=== PATIENT | female | born 1985 | race Caucasian/White ===

== ENCOUNTER 2023-08-12 02:33 | Day surgery (SDC) | payer BC ==
[2023-08-12] MEDS: Morphine 4 MG/ML Syringe IVPUSH ONE ×2 (03:18→06:09)
[2023-08-12] MEDS: Ondansetron 4 MG/2 ML SDV IVPUSH ONE (03:18)
[2023-08-12] MEDS: Sodium Chloride 0.9% 1,000 ML IV ONE (03:41)
[2023-08-12 03:43] LABS: BASOPHILS PERCENT AUTO 0.2 % (0.0-1.0); EOSINOPHILS ABSOLUTE AUTO 0.1 K/mm3 (0.0-0.4); EOSINOPHILS PERCENT AUTO 0.3 % (0.0-6.0); HEMATOCRIT 38.5 % (37.0-47.0); HEMOGLOBIN 12.8 gm/dl (12.0-16.0); IMMATURE GRAN ABSOLUTE AUTO 0.09 K/mm3 (0.00-0.05); IMMATURE GRAN PERCENT AUTO 0.4 % (0.0-0.4); LYMPHOCYTES ABSOLUTE AUTO 1.5 K/mm3 (1.0-4.8); LYMPHOCYTES PERCENT AUTO 7.4 % (24.0-44.0); MEAN CORPUSCULAR HEMOGLOBIN 27.6 pg (28.0-32.0); MEAN CORPUSCULAR HGB CONC 33.2 g/dl (32.0-36.0); MEAN CORPUSCULAR VOLUME 83.2 fl (83.0-99.0); MEAN PLATELET VOLUME 9.8 fl (9.4-12.3); MONOCYTES ABSOLUTE AUTO 1.2 K/mm3 (0.0-0.8); MONOCYTES PERCENT AUTO 5.6 % (0.0-8.0); NEUTROPHILS PERCENT AUTO 86.1 % (41.0-71.0); PLATELET COUNT,PLT 372 K/mm3 (150-400); RED BLOOD CELL COUNT 4.63 M/mm3 (4.10-5.30)
[2023-08-12 04:06] LABS: PROTHROMBIN TIME 9.9 SECONDS (9.7-12.0)
[2023-08-12 04:07] LABS: PTT,PARTIAL THROMBOPLSTIN TIME 25.6 SECONDS (21.7-31.4)
[2023-08-12 04:09] LABS: ALBUMIN 3.8 g/dl (3.4-5.0); ANION GAP 15.7 (5-15); BILIRUBIN TOTAL 0.4 mg/dL (0.2-1.0); BUN/CREATININE RATIO 14.3 (14-18); CALCIUM 8.8 mg/dL (8.5-10.1); CREATININE 0.7 mg/dL (0.55-1.02); EST CRCL DRUG DOSING (CG) 81.42 mL/min; POTASSIUM,K 3.7 mEq/L (3.5-5.1); PROTEIN TOTAL,TP 7.5 g/dl (6.4-8.2)
[2023-08-12 04:15] LABS: INR < 0.93
[2023-08-12 04:21] LABS: APPEARANCE,URINE CLEAR (Clear); BILIRUBIN,URINE NEGATIVE (Negative); COLOR,URINE YELLOW (Yellow); GLUCOSE,URINE NEGATIVE (Negative); KETONES,URINE NEGATIVE (Negative); LEUKOCYTE ESTERASE,URINE NEGATIVE (Negative); NITRITE,URINE NEGATIVE (Negative); OCCULT BLOOD,URINE TRACE-INTACT (Negative); PROTEIN,URINE NEGATIVE (Negative)
[2023-08-12 04:52] LABS: BACTERIA,URINE RARE /hpf (FEW); EPITHELIAL CELLS,URINE 0-5 /hpf (0-5); MUCUS,URINE NOT SEEN /hpf (FEW); RBC,URINE 0-5 /hpf (0-5); WBC,URINE 0-5 /hpf (0-5)
[2023-08-12] MEDS: Iopamidol 612 MG/ML 100 ML Bottle IVPUSH ONE (04:56)
[2023-08-12] MEDS: cefTRIAXone 1 GM in Sodium Chloride 0.9% 100 ML IV SCH (05:19)
[2023-08-12] MEDS: metroNIDAZOLE/Normal Saline 500 MG in Premix Bag 1 BAG IV SCH (05:19)
[2023-08-12] MEDS ORDERED: Rocuronium 50 MG/5 ML Vial ONE (06:46)
[2023-08-12] MEDS ORDERED: Propofol 200 MG/20 ML SDV ONE (06:46)
[2023-08-12] MEDS ORDERED: Ondansetron 4 MG/2 ML SDV ONE (06:46)
[2023-08-12] MEDS ORDERED: fentaNYL 250 MCG/5 ML SDV ONE (06:46)
[2023-08-12] MEDS ORDERED: Lidocaine 1% 5 ML VIAL ONE (06:46)
[2023-08-12] MEDS ORDERED: Midazolam 1 MG/ML 2 ML SDV ONE (06:46)
[2023-08-12] MEDS: Lidocaine 1% 30 ML SDV ONE (07:31)
[2023-08-12] MEDS: EPINEPHrine 1 MG/ML SDV ONE (07:31)
[2023-08-12] MEDS: Bupivacaine 0.5% 30 ML SDV ONE (07:31)
[2023-08-12] MEDS ORDERED: Dexamethasone 4 MG/ML 5 ML MDV ONE (07:34)
[2023-08-12] MEDS ORDERED: HYDROmorphone 0.5 MG/0.5 ML Syringe IVPUSH PRN (07:47)
[2023-08-12] MEDS ORDERED: Ondansetron 4 MG/2 ML SDV IVPUSH PRN (07:47)
[2023-08-12] MEDS ORDERED: Sugammadex Sodium 200 MG/2 ML VIAL IV ONE (07:51)
[2023-08-12] MEDS ORDERED: Ketorolac 30 MG/ML SDV ONE (07:54)
[2023-08-12] MEDS ORDERED: Lactated Ringers 1,000 ML ONE (08:03)
[2023-08-12] MEDS: fentaNYL 100 MCG/2 ML SDV IVPUSH PRN (08:40)
[2023-08-12] MEDS: Acetaminophen/oxyCODONE 325-5 MG Tab PO ONE (09:24)
[2023-08-12 11:09] VITALS: BP 137/88; PULSE 87
== END 2023-08-12 10:21 | disposition home or self-care (01) ==
LOC: JD.ED 02:33 → JD.SDS 06:42
PROVIDERS: ATTEND Surgery
DX: K35.33 Acute appendicitis with perforation, localized peritonitis, and gangrene, with abscess (principal); E66.9 Obesity, unspecified
CPT/HCPCS: 36415; 44970; 74177; 80053; 81001; 81025; 83605; 83690; 85025; 85610; 85730; 86850; 86900; 86901; 96365; 96368; 96375; 96376; 99285; A9270; J0171; J0665; J0696; J1100; J1836; J1885; J2250; J2270; J2405; J2704; J3010; J3490; J7030; J7120; Q9967; 00840; 99140